=== PATIENT | male | born 1975 | race Hispanic/Latino ===

== ENCOUNTER → 2017-06-26 | Outpatient (CLI) | payer BC ==
--- NOTE | 2017-06-26 17:42 | Diagnostic Imaging Report ---
PROCEDURE: X-RAY CHEST, TWO VIEWS COMPARISON: None. INDICATIONS: COUGH FINDINGS: LUNGS: No mass or infiltrate. The pulmonary vascular markings are normal. PLEURA: No effusions or pneumothorax. HEART \T\ MEDIASTINUM: The cardiomediastinal silhouette is normal. BONES \T\ SOFT TISSUES: No focal osseous lesions. Soft tissues are unremarkable. CONCLUSION: No acute cardiopulmonary process. Dictated by: Leandro Chahal M.D. on 06/26/2017 at 17:52 Electronically approved by: Leandro Chahal M.D. on 06/26/2017 at 17:52
== END ==
LOC: RAD 17:12
PROVIDERS: ATTEND Family Medicine
DX: R05 Cough (principal); K21.9 Gastro-esophageal reflux disease without esophagitis
CPT/HCPCS: 71046

== ENCOUNTER → 2017-06-29 | Outpatient (CLI) | payer BC ==
--- NOTE | 2017-06-29 13:56 | Diagnostic Imaging Report ---
PROCEDURE:X-RAY UPPER GI SERIES WITH AIR CONTRAST COMPARISON:None. INDICATIONS:GERD FINDINGS:The patient was given air crystals, thick barium, and thin barium to drink in upright and prone positions. Multiple images of the esophagus, stomach and duodenum were obtained. The esophagus is normal in appearance without evidence of dysmotility, mucosal irregularity, stricture, hiatal hernia or reflux. The stomach and duodenum are normal without evidence of intrinsic mucosal or extrinsic abnormality. There is no evidence of ulcer or fold thickening. Fluoroscopy time: 1.2 minutes. Total dose: 102.78 mGy CONCLUSION:Normal Upper GI Series. Jonny Barrios D.O. Dictated by: Jonny Barrios D.O. on 06/29/2017 at 13:56 Electronically approved by: Jonny Barrios D.O. on 06/29/2017 at 13:56
== END ==
LOC: DX 11:10
PROVIDERS: ATTEND Family Medicine
DX: R05 Cough (principal); K21.9 Gastro-esophageal reflux disease without esophagitis
CPT/HCPCS: 74246